=== PATIENT | female | born 1950 | race Caucasian/White ===

== ENCOUNTER 2019-02-03 20:57 | Emergency (ER) | payer MEDICARE, OTHER ==
[2019-02-03 21:22] VITALS: TEMP 98.1; O2SAT 98
--- NOTE | 2019-02-03 21:38 | RAD ---
EXAM DESCRIPTION: Ankle,Left 3 Views CLINICAL HISTORY: 68 years Female ,swelling COMPARISON: None. TECHNIQUE: Left ankle, 3 view FINDINGS: Some fragmentation along the distal aspect of the fibula suggesting avulsion injuries which are age indeterminate. Joint effusion. Soft tissue swelling anteriorly and laterally. IMPRESSION: Soft tissue swelling anteriorly and laterally with moderate joint effusion Fragmentation along the distal fibula which may reflect acute avulsion injuries Electronically signed by: Taya Medina MD 02/03/2019 9:36 PM CDT
--- NOTE | 2019-02-03 21:53 | ED.PDOC ---
History of Present Illness - General Chief Complaint: Lower Extremity Injury Stated Complaint: left ankle pain after stepping in hole Time Seen by Provider: 02/03/19 21:34 Source: patient Exam Limitations: no limitations - History of Present Illness Initial Comments: INVERSION INJURY L ANKLE. C/O PAIN AND SWELLING, NO WEAKNESS Occurred: this evening Improving Factors: nothing Worsening Factors: movement Allergies/Adverse Reactions: Allergies NO KNOWN ALLERGY Allergy (Verified 02/03/19 21:04) Home Medications: Ambulatory Orders Acetaminophen W/ Codeine [Tylenol W/ CODEINE #3] 1 ea PO Q6HR PRN #24 02/03/19 Indomethacin 50 mg PO TID PRN #14 cap 02/03/19 Review of Systems - Review of Systems Constitutional: Denies: chills, fever EENTM: States: no symptoms reported Musculoskeletal: States: joint pain, joint swelling. Denies: back pain, neck pain Skin: States: other - SWELLING, NO ECCHYMOSIS Neurological: Denies: numbness, weakness Physical Exam - Physical Exam General Appearance: No apparent distress, Obese Eyes, Ears, Nose, Throat: PERRL/EOMI, normal ENT inspection Leg: normal inspection, non-tender, no evidence of injury Knee: normal inspection, non-tender, no evidence of injury Ankle: other - SWELLING OVER LATERAL MALEOLUS, TTP, NVI, SUBJECTIVE DIFFUSE SENSORY DEFICIT NO BONY DEFORMITY, NO INSTABILITY Foot: normal inspection, non-tender, no evidence of injury Neuro/Tendon: normal sensation, normal motor functions Mental Status: alert, oriented x 3 Skin: normal color, warm/dry Progress - EKG/XRAY/CT XRAY: ankle - SOFT TISSUE SWELLING NO FX Departure - Departure Clinical Impression: Sprain of ankle Qualifiers: Encounter type: initial encounter Involved ligament of ankle: calcaneofibular ligament Laterality: left Qualified Code(s): S93.412A - Sprain of calcaneofibular ligament of left ankle, initial encounter Time of Disposition: 22:07 Disposition: Discharge to Home or Self Care Condition: Good Departure Forms: ED Discharge - Pt. Copy, Patient Portal Self Enrollment Instructions: Ankle Sprain (DC) Prescriptions: Acetaminophen W/ Codeine [Tylenol W/ CODEINE #3] 1 ea PO Q6HR PRN #24 PRN Reason: Pain Indomethacin 50 mg PO TID PRN #14 cap PRN Reason: Pain Home Medications: Ambulatory Orders Acetaminophen W/ Codeine [Tylenol W/ CODEINE #3] 1 ea PO Q6HR PRN #24 02/03/19 Indomethacin 50 mg PO TID PRN #14 cap 02/03/19
[2019-02-03 22:31] VITALS: BP 103/68
== END 2019-02-03 22:32 | disposition home or self-care (01) ==
LOC: ER 20:57
DX: S93.412A Sprain of calcaneofibular ligament of left ankle, initial encounter (principal); X50.9XXA Other and unspecified overexertion or strenuous movements or postures, initial encounter; Y92.9 Unspecified place or not applicable